=== PATIENT | female | born 1990 | race Two or more races ===

== ENCOUNTER 2016-11-21 18:32 | Emergency (ER) | payer MEDICAID ==
[~2016-11-21] VITALS: Ht 170.2 cm; Wt 117.9 kg
[2016-11-21 19:12] LABS: BASOPHIL % 0.3 % (0-2); PLATELET COUNT 263 x10^3mcL (130-400)
[2016-11-21 19:13] LABS: CALCIUM 8.9 mg/dL (8.5-10.1); CARBON DIOXIDE 28.7 mmol/L (21-32); CHLORIDE SERUM 105 mmol/L (98-107); CREATININE SERUM 0.5 mg/dL (0.6-1.0); GFR1 > 60 mL/min; GLUCOSE SERUM 86 mg/dL (74-106); POTASSIUM SERUM 3.7 mmol/L (3.5-5.1); SODIUM SERUM 140 mmol/L (136-145)
[2016-11-21 19:16] LABS: RED CELL DISTRIBUTION WIDTH 16.1 % (11.5-14.5)
[2016-11-21 19:17] LABS: ALKALINE PHOSPHATASE 88 U/L (46-116); ALT/SGPT 24 U/L (14-59); AST/SGOT 16 U/L (15-37); BILIRUBIN TOTAL 0.42 mg/dL (0.20-1.00); TOTAL PROTEIN, SERUM 7.3 g/dL (6.4-8.2)
[2016-11-21 19:18] LABS: ALBUMIN 3.1 g/dL (3.4-5.0)
[2016-11-21 22:45] VITALS: BP 144/80
== END 2016-11-21 22:46 | disposition home or self-care (01) ==
LOC: ED 18:32
PROVIDERS: Emergency Medicine
DX: N93.9 Abnormal uterine and vaginal bleeding, unspecified (principal); R10.31 Right lower quadrant pain
CPT/HCPCS: J2405; J3010; J7030

== ENCOUNTER 2017-11-10 12:51 | Emergency (ER) | payer MEDICAID ==
[~2017-11-10] VITALS: Ht 149.9 cm; Wt 145.1 kg
[2017-11-10 13:02] VITALS: Ht 149.9 cm; Wt 145.1 kg
[2017-11-10 15:26] VITALS: BP 150/79
== END 2017-11-10 15:26 | disposition home or self-care (01) ==
LOC: ED 12:51
DX: N39.0 Urinary tract infection, site not specified (principal)
CPT/HCPCS: 82962; J1885; Q0162

== ENCOUNTER 2018-03-04 13:59 | Emergency (ER) | payer MEDICAID ==
[~2018-03-04] VITALS: Ht 149.9 cm; Wt 142.0 kg
[2018-03-04 14:09] VITALS: Ht 149.9 cm; Wt 142.0 kg
[2018-03-04 15:55] VITALS: BP 141/88
== END 2018-03-04 15:54 | disposition home or self-care (01) ==
LOC: ED 13:59
DX: K12.1 Other forms of stomatitis (principal); E66.01 Morbid (severe) obesity due to excess calories; Z68.44 Body mass index [BMI] 60.0-69.9, adult

== ENCOUNTER 2019-01-20 09:00 | Emergency (ER) | payer MEDICAID ==
[~2019-01-20] VITALS: Ht 149.9 cm; Wt 142.4 kg
[2019-01-20 09:07] VITALS: Ht 149.9 cm; Wt 142.4 kg
[2019-01-20 09:42] VITALS: BP 125/80
== END 2019-01-20 09:42 | disposition home or self-care (01) ==
LOC: ED 09:00
DX: H66.93 Otitis media, unspecified, bilateral (principal)

== ENCOUNTER 2019-08-12 09:53 | Emergency (ER) | payer MEDICAID ==
[~2019-08-12] VITALS: Ht 152.4 cm; Wt 146.5 kg
[2019-08-12 10:04] VITALS: Ht 152.4 cm; Wt 146.5 kg
[2019-08-12 11:07] LABS: BASOPHIL % 0.4 % (0-2); PLATELET COUNT 258 x10^3mcL (130-400); RED CELL DISTRIBUTION WIDTH 14.8 % (11.5-14.5); UA SPECIFIC GRAVITY 1.025 (1.005-1.035); microscopic required? YES; urine erythrocyte NEGATIVE (NEGATIVE)
[2019-08-12 11:36] LABS: CALCIUM 8.8 mg/dL (8.5-10.1); CARBON DIOXIDE 31.1 mmol/L (21-32); CHLORIDE SERUM 104 mmol/L (98-107); CREATININE SERUM 0.6 mg/dL (0.6-1.0); GFR1 > 60 mL/min; GLUCOSE SERUM 85 mg/dL (74-106); SODIUM SERUM 142 mmol/L (136-145)
[2019-08-12 11:39] LABS: ALBUMIN 3.5 g/dL (3.4-5.0); ALKALINE PHOSPHATASE 91 U/L (46-116); ALT/SGPT 31 U/L (14-59); AST/SGOT 16 U/L (15-37); BILIRUBIN TOTAL 0.5 mg/dL (0.20-1.00); TOTAL PROTEIN, SERUM 7.7 g/dL (6.4-8.2)
[2019-08-12 13:17] VITALS: BP 131/59
== END 2019-08-12 13:18 | disposition home or self-care (01) ==
LOC: ED 09:53
PROVIDERS: Emergency Medicine
DX: G89.29 Other chronic pain (principal); M54.5 Low back pain; R10.30 Lower abdominal pain, unspecified; R30.0 Dysuria; Z98.890 Other specified postprocedural states
CPT/HCPCS: 36415; J1885; Q0162

== ENCOUNTER 2020-06-21 08:12 | Emergency (ER) | payer MEDICAID ==
[2020-06-21 08:15] VITALS: BP 00/00; Ht 149.9 cm
== END 2020-06-21 18:10 ==
LOC: ED 08:12 → EDBD 08:12 → ED 08:12
DX: I45.9 Conduction disorder, unspecified (principal); E66.01 Morbid (severe) obesity due to excess calories; F32.9 Major depressive disorder, single episode, unspecified